=== PATIENT | male | born 1965 | race Caucasian/White ===

== ENCOUNTER 2020-01-29 06:47 | Outpatient (NON) | payer BC, SELFPAY ==
[2020-01-29 22:14] LABS: SARS-CoV-2 RNA PCR Negative
== END 2020-01-29 06:48 ==
LOC: ANHCOVIDDT 06:50
PROVIDERS: Visit Provider Internal Medicine
DX: Z20.828 Contact with and (suspected) exposure to other viral communicable diseases (principal); R05 Cough
CPT/HCPCS: 87635; C9803; U0003

== ENCOUNTER 2020-03-08 06:54 | Outpatient (NON) | payer BC, SELFPAY ==
[2020-03-09 16:06] LABS: SARS-CoV-2 RNA PCR Positive
== END 2020-03-08 06:55 ==
LOC: ANHCOVIDDT 06:57
PROVIDERS: Visit Provider Internal Medicine
DX: U07.1 COVID-19 (principal)
CPT/HCPCS: 87635; C9803; U0003

== ENCOUNTER 2020-06-29 10:33 | Outpatient (CLI) | payer BC, SELFPAY ==
[2020-06-29 10:55] LABS: Add Urine Microscopic? NO; Appearance Urine Clear (Clear); Bilirubin Urine Negative (Negative); Blood Urine Negative (Negative); Color Urine Colorless (Yellow); Glucose Urine UA Negative (Negative); Ketones Urine Negative (Negative); Leukocyte Esterase Ur Negative LEU/UL (NEGATIVE); Nitrate Urine Negative (Negative); Protein Urine Negative (Negative); Urobilinogen Urine Negative mg/dL (<2.0)
[2020-06-29 11:04] LABS: Specific Grav Ur 1.004 (1.001-1.035)
== END 2020-06-29 10:34 | disposition home or self-care (01) ==
PROVIDERS: PCP Internal Medicine; Visit Provider Physician Assistant
DX: R30.0 Dysuria (principal)
CPT/HCPCS: 81003; 87086

== ENCOUNTER 2020-06-30 11:00 | Emergency (ER) | payer BC, SELFPAY ==
--- NOTE | ~2020-06-30 | CT_ITS ---
EXAMINATION: CT abdomen pelvis wo con EXAM DATE: 06/30/2020 11:40 INDICATION: Low back and bladder pain, symptoms a week. Urinary frequency, urgency. TECHNIQUE: Spiral CT of the abdomen and pelvis was performed without contrast. Axial, coronal and sag ittal images were reviewed. The dose-length product (DLP) for this examination was 185.18 mGy-cm. T he exposure was tailored according to patient size (auto mA exposure control), and iterative reconstr uction (ASIR) was used as additional dose reduction technique. Comparison is made to prior examinatio n from 07/03/2015. FINDINGS: There is no nephrolithiasis or hydronephrosis. The prostate is unremarkable. The bladder is unremarkable. The liver, spleen, adrenal glands and pancreas are unremarkable. Gallbladder is u nremarkable. No biliary obstruction. There is no retroperitoneal or pelvic lymphadenopathy. Probable identification of a normal appendix. No pericecal inflammation. The stomach and small sneha l are unremarkable. There is expected amount of colonic stool. No free intraperitoneal gas. The heart is normal in size. There are no pericardial or pleural effusions. The lung bases are unremark able. There are no osteoblastic or osteolytic lesions identified. IMPRESSION: 1. No nephrolithiasis, hydronephrosis or acute intra-abdominal findings. Reviewed, dictated and finalized at location A.
[2020-06-30 11:20] VITALS: BP 155/91; PULSE 68; RESP 16; TEMP 37; O2SAT 100
--- NOTE | 2020-06-30 11:45 | ED.GENADULT ---
HPI - General Adult General Chief complaint: Urogenital-Male Stated complaint: bladder pain Time Seen by Provider: 06/30/20 11:15 Source: patient Mode of arrival: ambulatory Limitations: no limitations History of Present Illness HPI narrative: Patient is a 54-year-old male who presents to emergency department for evaluation of pain in the suprapubic region that began over the weekend and is worsening each day has had a similar bout in the past that lasted a few days and resolved. Patient notes that he took Azo with no improvement. Patient notes that he has had some issues with urination associated with it feeling like he still needs to empty his bladder. Related Data Home Medications Medication Instructions Recorded Confirmed azelastine 205.5 mcg (0.15 %) 2 spray NASAL DAILY 05/04/19 03/07/20 nasal spray ferrous sulfate 325 mg (65 mg 325 mg PO DAILY 05/04/19 03/07/20 iron) tablet fexofenadine 180 mg tablet 180 mg PO DAILY 05/04/19 03/07/20 fluticasone propionate 50 2 spray NASAL DAILY 05/04/19 03/07/20 mcg/actuation nasal spray,suspension multivitamin 1 tablet PO DAILY 05/04/19 03/07/20 omeprazole magnesium 20 mg 20 mg PO DAILY 05/04/19 03/07/20 tablet,delayed release turmeric 400 mg capsule mg PO 05/04/19 03/07/20 Allergies Allergy/AdvReac Type Severity Reaction Status Date / Time Penicillins Allergy Mild rash Verified 06/30/20 11:24 Review of Systems Review of Systems: All systems reviewed & are unremarkable except as noted in HPI and below PMFSH Family History Family History Mother Patient's mother is in good health Sibling Patient's sister is in good health Father Patient's father is Social History Social History Smoking status: Never smoker Second hand tobacco smoke exposure: No Alcohol intake: current Exam Narrative: Exam Narrative: GENERAL: Well-appearing, well-nourished, and in no acute distress. HEAD: Normocephalic, atraumatic. EYES: PERRLA and EOMI. ENT: Nares clear, no rhinorrhea or epistaxis. Mucous membranes moist. CHEST: Clear to auscultation. No respiratory distress. No wheezes rales or rhonchi HEART: Regular rate and rhythm. No murmur heard. Normal peripheral pulses. ABDOMEN: Soft, suprapubic tenderness to palpation with voluntary guarding no masses palpated, nondistended EXTREMITIES: Normal range of motion. No edema. SKIN: Warm, dry, no rash. NEURO: No focal deficits. Alert and oriented x3. PSYCH: Normal mood and affect. Course Course Emergency Course: Patient evaluated in the emergency department will be discharged home did have nitrate in the urine could potentially be a prostatitis or urinary tract infection will be referred to urology given the recurrence of symptoms. Patient had improvement with medications will be discharged on antibiotics and Pyridium ABCs and vital signs intact and stable. . No high risk changes in the blood work or imaging Vital Signs Vital signs: Vital Signs Temperature 98.6 F 06/30/20 11:20 Pulse Rate 68 06/30/20 11:20 Respiratory Rate 16 06/30/20 11:20 Blood Pressure 155/91 H 06/30/20 11:20 Pulse Oximetry 100 06/30/20 11:20 Temperature 98.6 F 06/30/20 11:20 Pulse Rate 68 06/30/20 11:20 Respiratory Rate 16 06/30/20 11:20 Blood Pressure 155/91 H 06/30/20 11:20 Pulse Oximetry 100 06/30/20 11:20 Medical Decision Making MDM Narrative Medical decision making narrative: Patient with urinary symptoms with nitrate positive urine will be treated with antibiotics referred to urology and primary care for further evaluation feels comfortable with this plan Vital Signs Vital Signs: Vital Signs Temperature 98.6 F 06/30/20 11:20 Pulse Rate 68 06/30/20 11:20 Respiratory Rate 16 06/30/20 11:20 Blood Pressure 155/91 H 06/30/20 11:20 Pulse Oximetry 100 06/30/20 11
[2020-06-30] MEDS: SODIUM CHLORIDE 0.9% IV 1,000 ML 999 ML IV CONT (12:01)
[2020-06-30 12:03] LABS: Basophils Absolute Auto 0.1 K/mm3 (0.0-0.1); Basophils Percent Auto 1.5 % (0.2-1.2); Eosinophils Absolute Auto 0.3 K/mm3 (0-0.3); Eosinophils Percent Auto 4.8 % (0-4.4); Hematocrit 44.3 % (42.0-52.0); Hemoglobin 15.2 g/dL (14.0-18.0); Immature Granulocyte Absolute 0.01 K/mm3 (0.00-0.031); Immature Granulocyte Percent A 0.2 % (0-0.5); Lymphocytes Absolute Auto 1.75 K/mm3 (0.9-3.2); Lymphocytes Percent Auto 32.5 % (18.3-44.2); Mean Corpuscular HGB Conc 34.3 g/dl (32-36); Mean Corpuscular Hemoglobin 31.7 pg (26-34); Mean Corpuscular Volume 92.5 fl (80-100); Mean Platelet Volume 9.5 fl (7.4-10.4); Monocytes Absolute Auto 0.6 K/mm3 (0.1-0.6); Monocytes Percent Auto 10.4 % (2.6-8.5); Neutrophils Absolute Auto 2.7 K/mm3 (1.3-6.7); Neutrophils Percent Auto 50.6 % (45.5-73.1); Platelet Count Result 235 k/mm3 (150-375); Red Blood Count 4.79 M/mm3 (4.6-6.20); Red Cell Distribution Width 11.7 % (11.5-14.5); White Blood Count 5.4 K/mm3 (4.5-10.0)
[2020-06-30 12:06] LABS: Add Urine Microscopic? YES; Appearance Urine Clear (Clear); Bilirubin Urine Negative (Negative); Blood Urine Negative (Negative); Color Urine Amber (Yellow); Glucose Urine UA Negative (Negative); Ketones Urine Negative (Negative); Leukocyte Esterase Ur Negative LEU/UL (Negative); Nitrate Urine Positive (Negative); Protein Urine Negative (Negative); RBC Urine 0-2 /hpf (0-2); WBC Urine 0-3 /hpf
[2020-06-30 12:16] LABS: Specific Grav Ur 1.004 (1.001-1.035)
[2020-06-30 12:19] LABS: Alanine Aminotransferase 17 U/L (4-50); Albumin Level 4.3 g/dL (3.5-5.1); Alkaline Phosphatase 38 U/L (38-126); Anion Gap 5 mmol/L (8-16); Aspartate Amino Transferase 24 U/L (17-59); Bilirubin,Total 0.5 mg/dL (0.2-1.3); Blood Urea Nitrogen 14 mg/dL (9-20); Carbon Dioxide 29 mmol/L (22-30); Chloride 104 mmol/L (98-107); Estimated CRCL calculation 62 ml/min; Estimated Glomerular Filt Rate > 60; Glucose 112 mg/dL (75-110); Sodium 138 mmol/L (137-145)
[2020-06-30] MEDS: KETOROLAC 30 MG/ML VIAL (*BKC) IV PUSH (12:44)
[2020-06-30 13:03] VITALS: BP 143/89; PULSE 72; RESP 16; TEMP 36.8; O2SAT 100
== END 2020-06-30 13:04 | disposition home or self-care (01) ==
PROVIDERS: Emergency Medicine Emergency Medical Services; Emergency Provider Emergency Medicine; PCP Internal Medicine
DX: R30.0 Dysuria (principal)
CPT/HCPCS: 36415; 74176; 80053; 81001; 85025; 87086; 96365; 96375; 99284; J0131; J1885; J7030

== ENCOUNTER → 2021-02-28 02:28 | Outpatient (CLI) | payer BC, SELFPAY ==
[2021-02-28 17:58] LABS: SARS-CoV-2 RNA PCR Negative
== END ==
PROVIDERS: PCP Internal Medicine; Visit Provider Internal Medicine
DX: J02.9 Acute pharyngitis, unspecified (principal); Z20.822 Contact with and (suspected) exposure to COVID-19
CPT/HCPCS: C9803; U0003; U0005

== ENCOUNTER → 2021-04-27 08:41 | Outpatient (CLI) | payer BC, SELFPAY ==
[2021-04-27 13:58] LABS: Influenza A QL RT-PCR Negative (Negative); Influenza B QL RT-PCR Negative (Negative); SARS-CoV-2 RNA PCR Negative
== END ==
PROVIDERS: PCP Internal Medicine; Visit Provider Internal Medicine
DX: R68.89 Other general symptoms and signs (principal); Z20.822 Contact with and (suspected) exposure to COVID-19
CPT/HCPCS: 87502; C9803; U0003; U0005

== ENCOUNTER → 2021-06-15 11:42 | Outpatient (CLI) | payer BC, SELFPAY ==
--- NOTE | ~2021-06-15 | XR_ITS ---
XR thoracic spine 2V DATE: 06/15/2021 12:13 INDICATION: Back pain TECHNIQUE: AP, lateral, swimmer views COMPARISON: 08/07/2011 thoracic spine FINDINGS: There is moderately prominent degenerative disc disease at C5-6 and C6-7. There is degenerative spurring of the mid and lower thoracic spine, with prominent bridging osteophyt es particularly along the right lower lateral thoracic spine. No fracture or dislocation or bone destruction. The thoracic pedicles appear intact. No paraspinal so ft tissue thickening. IMPRESSION: Moderate degenerative spurring of the thoracic spine Moderately prominent degenerative disease at C5-6 and C6-7 Reviewed, dictated and finalized at location A.
--- NOTE | ~2021-06-15 | XR_ITS ---
XR lumbar spine 2-3V DATE: 06/15/2021 12:12 INDICATION: Back pain TECHNIQUE: AP, lateral, coned lateral lumbosacral views COMPARISON: None FINDINGS: Normal alignment of the lumbar spine. There is mild degenerative disc disease of the upper mid lumbar spine. The lumbar pedicles are intact. No fracture or bone destruction or spondylolisthesi s. The sacroiliac joints appear normal. IMPRESSION: Mild degenerative change Reviewed, dictated and finalized at location A. IMPRESSION: Mild degenerative change
== END ==
PROVIDERS: PCP Internal Medicine; Visit Provider Internal Medicine
DX: M50.322 Other cervical disc degeneration at C5-C6 level (principal); M51.36 Other intervertebral disc degeneration, lumbar region
CPT/HCPCS: 72070; 72100

== ENCOUNTER → 2021-08-03 08:53 | Outpatient (CLI) | payer BC, SELFPAY ==
[2021-08-03 15:55] LABS: SARS-CoV-2 RNA PCR Negative
== END ==
PROVIDERS: PCP Internal Medicine; Visit Provider Physician Assistant
DX: R68.89 Other general symptoms and signs (principal); Z20.822 Contact with and (suspected) exposure to COVID-19
CPT/HCPCS: C9803; U0003; U0005

== ENCOUNTER 2022-02-25 07:13 | Emergency (ER) | payer BC, SELFPAY ==
[2022-02-25] VITALS (8 sets, daily range): BP systolic 115–139; BP diastolic 74–88; PULSE 61–76; RESP 10–16; TEMP 36.7; O2SAT 99–100
--- NOTE | ~2022-02-25 | XR_ITS ---
EXAMINATION: XR chest 2V DATE: 02/25/2022 08:05 INDICATION: Chest pain. TECHNIQUE: Frontal and lateral views of the chest were obtained. COMPARISON: Chest single view 08/07/2011 FINDINGS: The chest demonstrates clear lungs without pneumonia, pleural effusion, or pneumothorax. Th e heart size is normal. IMPRESSION: 1. No acute cardiopulmonary disease. Reviewed, dictated and finalized at location A. GER OF PATIENT
--- NOTE | 2022-02-25 07:14 | ECG_ITS ---
Measurements Intervals [place] Rate: 70 P: 62 MS: 133 QRS: 67 QRSD: 93 T: 68 QT: 370 QTc: 399 Interpretive Statements SINUS RHYTHM WITH SINUS ARRHYTHMIA NORMAL ECG NO PREVIOUS ECG AVAILABLE FOR COMPARISON Electronically Signed On 02-25-2022 10:48:25 [employer] by Jose J Montiel D.O.
[2022-02-25] MEDS: ASPIRIN 81 MG CHEWABLE TABLET 324 MG PO (07:38)
[2022-02-25 07:52] LABS: Basophils Absolute Auto 0.1 K/mm3 (0.0-0.1); Basophils Percent Auto 1.3 % (0.2-1.2); Eosinophils Absolute Auto 0.4 K/mm3 (0-0.3); Eosinophils Percent Auto 6.1 % (0-4.4); Hematocrit 43.8 % (42.0-52.0); Hemoglobin 15.2 g/dL (14.0-18.0); Immature Granulocyte Absolute 0.03 K/mm3 (0.00-0.031); Immature Granulocyte Percent A 0.5 % (0-0.5); Lymphocytes Percent Auto 34.7 % (18.3-44.2); Mean Corpuscular HGB Conc 34.7 g/dl (32-36); Mean Corpuscular Hemoglobin 31.9 pg (26-34); Mean Corpuscular Volume 91.8 fl (80-100); Mean Platelet Volume 9.4 fl (7.4-10.4); Monocytes Absolute Auto 0.6 K/mm3 (0.1-0.6); Monocytes Percent Auto 10.4 % (2.6-8.5); Neutrophils Absolute Auto 2.9 K/mm3 (1.3-6.7); Platelet Count Result 253 k/mm3 (150-375); Red Blood Count 4.77 M/mm3 (4.6-6.20); Red Cell Distribution Width 12.1 % (11.5-14.5); White Blood Count 6.1 K/mm3 (4.5-10.0)
[2022-02-25 08:03] LABS: Alanine Aminotransferase 19 U/L (6-50); Albumin Level 4.2 g/dL (3.5-5.1); Alkaline Phosphatase 43 U/L (38-126); Anion Gap 8 mmol/L (8-16); Aspartate Amino Transferase 24 U/L (17-59); Bilirubin,Total 0.5 mg/dL (0.2-1.3); Blood Urea Nitrogen 21 mg/dL (9-20); Calcium 8.5 mg/dL (8.4-10.2); Carbon Dioxide 27 mmol/L (22-30); Chloride 101 mmol/L (98-107); Estimated CRCL calculation 56 ml/min; Estimated Glomerular Filt Rate 58; Glucose 97 mg/dL (65-110); Lipase 184 U/L (23-300); Potassium 4.1 mmol/L (3.4-5.0); Sodium 136 mmol/L (137-145)
[2022-02-25 08:11] LABS: INR 1.1; Partial Thromboplastin Time 24.6 SECONDS (22.3-36.8); Prothrombin Time 13.3 Seconds (11.1-14.7)
[2022-02-25 08:15] LABS: Troponin I < 0.012 ng/mL (0.000-0.034)
--- NOTE | 2022-02-25 10:01 | ED.CHESTPAIN ---
HPI - Chest Pain General Chief Complaint: Chest Pain Stated Complaint: Racing HR, palpitations Time Seen by Provider: 02/25/22 07:17 Source: patient and family Mode of arrival: ambulatory History of Present Illness HPI narrative: 56-year-old with a history of hypercholesterolemia here with complaints of intermittent palpitations since last night. Patient states that his heart rate went up to 120 he was checking on his iWatch, this happened last evening and again this morning. He states that he had mild chest discomfort. He denied being lightheaded or dizzy. No history of nausea, vomiting or diarrhea. No history of fever or chills. Related Data Allergies Allergy/AdvReac Type Severity Reaction Status Date / Time Penicillins Allergy Mild rash Verified 02/25/22 07:28 Review of Systems Review of Systems: All systems reviewed & are unremarkable except as noted in HPI and below Constitutional: Constitutional: Reports no additional constitutional complaints Eyes: Eyes: Reports no additional eye complaints ENT: Reports system reviewed and no additional complaints, except as documented Cardiovascular: Cardiovascular: Reports as per HPI Respiratory: Respiratory: Reports no additional respiratory complaints Gastrointestinal: Gastrointestinal: Reports no additional gastrointestinal complaints Musculoskeletal: Musculoskeletal: Reports no additional musculoskeletal complaints Neurologic: Reports system reviewed and no additional complaints, except as documented Psychiatric: Psychiatric: Reports no additional psychiatric complaints PMFSH Family History Family History Mother Patient's mother is in good health Sibling Patient's sister is in good health Father Patient's father is Social History Social History Smoking status: Never smoker Second hand tobacco smoke exposure: No Alcohol intake: current Exam Narrative: GENERAL: Well-appearing, well-nourished, and in no acute distress. HEAD: Normocephalic, atraumatic. EYES: PERRLA and EOMI.. NECK: Supple. CHEST: Clear to auscultation. No respiratory distress. HEART: Regular rate and rhythm. No murmur heard. Normal peripheral pulses. ABDOMEN: Soft, nontender, nondistended, normal active bowel sounds. EXTREMITIES: Normal range of motion. No edema. SKIN: Warm, dry, no rash. NEURO: No focal deficits. Alert and oriented x3. PSYCH: Normal mood and affect. Course Course Emergency Course: Patient remained in normal sinus rhythm here in the ER for several hours his heart rate ranged from 65-78-80. I informed him about his lab work, EKG and chest x-ray findings. Recommended him not to drink much of coffee or caffeinated beverages. Advised him to follow-up with his primary doctor and also if needed cardiology. Vital Signs Vital signs: Vital Signs Temperature 36.7 C 02/25/22 07:23 Pulse Rate 68 02/25/22 07:23 Respiratory Rate 12 02/25/22 07:23 Blood Pressure 139/88 02/25/22 07:23 Pulse Oximetry 100 02/25/22 07:23 Oxygen Delivery Room Air 02/25/22 07:23 Temperature 36.7 C 02/25/22 07:23 Pulse Rate 73 02/25/22 08:51 Respiratory Rate 15 02/25/22 08:51 Blood Pressure 115/80 02/25/22 08:51 Pulse Oximetry 100 02/25/22 08:51 Oxygen Delivery Room Air 02/25/22 07:23 MDM - Chest Pain Differential Diagnosis Differential diagnosis: Likely unstable angina pectoris, atypical chest pain and chest pain Medical Records Data Attestation: I reviewed the patient's medical records. Lab Data Attestation: I reviewed the patient's lab results. Result diagrams: 02/25/22 07:33 02/25/22 07:33 Labs: Lab Results 02/25/22 02/25/22 02/25/22 Range/Units 07:33 07:33 07:33 WBC 6.1 (4.5-10.0) K/mm3 RBC 4.77 (4.6-6.20) M/mm3 Hgb 15.2 (14.0-18.0) g/dL Hct 43.8
== END 2022-02-25 10:35 | disposition home or self-care (01) ==
PROVIDERS: Emergency Provider Family Medicine; PCP Internal Medicine
DX: R00.2 Palpitations (principal); E78.00 Pure hypercholesterolemia, unspecified
CPT/HCPCS: 36415; 71046; 80053; 83690; 84484; 85025; 85610; 85730; 93005; 99284; A9270

== ENCOUNTER 2022-03-14 09:00 | Outpatient (CLI) | payer BC, SELFPAY ==
--- NOTE | ~2022-03-14 | NM_ITS ---
EXAMINATION: NM neha stress w perfusion DATE: 03/14/2022 11:00 INDICATION: Chest pain TECHNIQUE: Rest images were obtained following intravenous administration of 8.3 mCi Tc99m tetrofosmi n (Myoview). The patient was infused intravenously with Lexiscan (Regadenoson). Then, 27.9 mCi Tc99m tetrofosmin (Myoview) was administered intravenously, and stress images were obtained. Data was recon structed into short axis and horizontal and vertical long axis SPECT images. Gated SPECT images were also obtained. COMPARISON: None. FINDINGS: There is no definite reversible or fixed perfusion abnormality to suggest ischemia or infar ction. There is normal left ventricular chamber size, wall motion and ejection fraction. Left ventr icular ejection fraction measures 54%. IMPRESSION: 1. Normal myocardial perfusion at rest and during stress. 2. Left ventricular ejection fraction measuring 54%. Reviewed, dictated and finalized at location A. ATING ROOM ORDERLY
--- NOTE | 2022-03-14 09:22 | EST_ITS ---
Patient Info Name: Av Quintanilla Age: 56 years : 1965 Gender: Male Ht: 68 in Wt: 155 lbs BSA: 1.84 m2 HR: 62 bpm BP: 138 / 75 mmHg Heart Rhythm: Sinus Rhythm Exam Date: 03/14/2022 10:02 AM Exam Location: [facility] Stress Patient Status: Outpatient Admit Date: 03/14/2022 Staff Ordering Physician: Curtis Horton PA-C Attending Provider: Curtis Horton PA-C Exercise Technologist: Valencia Valdez CT Exercise Physician: Jose J Montiel DO Exam Type: CA stress neha w NM Study Info Indications R07.9 - Chest pain, unspecified A regadenoson stress test was performed. Summary 1. 1. Negative lexiscan stress test for ischemic ST changes by ECG criteria. 2. 2. Stable hemodynamics throughout the test. 3. 3. Nuclear scan to follow and will be reported separately. Please correlate with it. 4. 4. Patient informed of the above results. Protocol: Lexiscan Stress ECG Details Stage: REST Duration (min): 1 min : 43 sec HR (bpm): 60 SBP (mmHg): 138 DBP (mmHg): 75 Stage: REST Duration (min): 5 min : 42 sec HR (bpm): 66 SBP (mmHg): 138 DBP (mmHg): 75 Stage: STAGE 1 Duration (min): 1 min : 0 sec HR (bpm): 101 SBP (mmHg): 136 DBP (mmHg): 85 Stage: RECOVERY Duration (min): 1 min : 0 sec HR (bpm): 88 SBP (mmHg): 136 DBP (mmHg): 85 Stage: RECOVERY Duration (min): 2 min : 0 sec HR (bpm): 70 SBP (mmHg): 136 DBP (mmHg): 85 Stage: RECOVERY Duration (min): 2 min : 56 sec HR (bpm): 77 SBP (mmHg): 123 DBP (mmHg): 81 Rest HR: 66 bpm Peak HR: 103 bpm Rest Sys BP: 138 mmHg Peak Sys BP: 136 mmHg Max Pred HR: 166 bpm % Max Pred HR: 62 % Target HR: 141 bpm Max RPP: 14,008 bpm*mmHg Termination Reason: Completed protocol Cardiac Symptoms: Shortness of breath, Flushed Total Time: 1 min : 0 sec Rest Jonas BP: 75 mmHg Peak Jonas BP: 85 mmHg Total Dose: 0.4 mg Resting ECG Sinus rhythm. Stress ECG No ST changes. Arrhythmias None. Report Signatures
== END 2022-03-14 09:01 | disposition home or self-care (01) ==
PROVIDERS: PCP Internal Medicine; Visit Provider Physician Assistant
DX: R07.9 Chest pain, unspecified (principal)
CPT/HCPCS: 78452; 93017; A9502; J2785

== ENCOUNTER 2024-03-28 17:50 | Emergency (ER) | payer OTHER, SELFPAY ==
[2024-03-28 18:03] VITALS: BP 113/74; PULSE 83; RESP 16; TEMP 36.2; O2SAT 99
--- NOTE | 2024-03-28 18:10 | ED_ITS ---
HPI - URI/Sore Throat General Chief Complaint: Upper Respiratory Infection Stated Complaint: congestion,cough Source: patient, RN notes reviewed and old records reviewed Mode of arrival: ambulatory Limitations: no limitations History of Present Illness HPI Narrative: Patient presents with complaint productive cough, body aches, rash. He reports that symptoms all began about 1 week ago. 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 He reports that he has had chills, sweats, unsure of fever status. He has been taking multiple [id number] medications with minimal results. Related Data Home Medications ?Medication ?Instructions ?Recorded ?Confirmed ?Last Taken ?Type fexofenadine 180 mg tablet 180 mg PO DAILY 03/28/24 03/28/24 Unknown History (Lana Allergy) omeprazole 20 mg capsule,delayed 20 mg PO DAILY 03/28/24 03/28/24 Unknown History release Allergies Allergy/AdvReac Type Severity Reaction Status Date / Time Penicillins Allergy Mild rash Verified 03/28/24 17:56 Review of Systems Review of Systems: All systems reviewed & are unremarkable except as noted in HPI and below Constitutional: Constitutional: Reports no additional constitutional complaints ENT: Reports system reviewed and no additional complaints, except as documented, Reports nasal congestion and Reports nasal discharge Cardiovascular: Cardiovascular: Reports no additional cardiovascular complaints Respiratory: Respiratory: Reports no additional respiratory complaints, Reports change in phlegm color, Reports chest congestion, Reports cough, Reports excessive phlegm production and Reports pain with cough Gastrointestinal: Gastrointestinal: Reports no additional gastrointestinal complaints PMFSH Past Medical History Medical History Other and unspecified hyperlipidemia Family History Family History Mother Patient's mother is in good health Sibling Patient's sister is in good health Father Patient's father is Social History Social History Smoking status: Never smoker Second hand tobacco smoke exposure: No Alcohol intake: current Lack of Transportation: No Lack of Food: Never True Current Housing: I Have Housing Concerned About Future Housing: No Difficulty Paying Gas/Electric Bills: No Difficulty Paying for Meds: No Currently Unemployed: No Education: Bachelor's Degree Difficulty w/ Childcare or Family Care: No Comments At the time of my signature, I reviewed and agree with the nursing past medical, surgical, social, and family history. There is no relevant family history pertinent to the patient complaint. Exam Const: General: cooperative, no acute distress, alert and awake Orientation/consciousness: oriented to person, oriented to place and oriented to time HENMT: Head: normal to inspection Ears: TM's normal bilaterally Mouth: Yes moist mucous membranes Throat: posterior oropharynx abnormal erythema Resp: Effort & Inspection: normal respiratory effort and able to speak in complete sentences Auscultation: clear to auscultation bilaterally, crackles on the right in the lower lung hernandez, no rales, no rhonchi and no wheezes Cardio: Palpation: normal PMI Rate: regular rate Rhythm: regular rhythm Heart sounds: S1 normal heart sound present and S2 normal heart sound present Skin: General skin exam: rashes (Maculopapular rash to trunk) Neuro: General: oriented to person, oriented to place and oriented to time Cranial nerves: Yes CN's II-XII intact bilaterally Psych: Appearance: grossly normal Thought process: Normal thought process present Insight: Good insight present (Psych) Judgement: Good judgement present (Psych) Course Course Level of Care: Express Care Visit Vital Signs Vital signs: Vital Signs Temperature 97.1 F L 03/28/24 18:03 Pulse Rate 83 03/28/24 18:03 Respiratory Rate 16 03/28/24 18:03 Blood Pressure 113/74 03/28/24 18:03 Pulse Oximetry 99 03/28/24 18:03 Oxygen Delivery Room Air 03/28/24 18:03 Temperature 97.1 F L 03/28/24 18:03 Pulse Rate 83 03/28/24 18:03 Respiratory Rate 16 03/28/24 18:03 Blood Pressure 113/74 03/28/24 18:03 Pulse Oximetry 99 03/28/24 18:03 Oxygen Delivery Room Air 03/28/24 18:03 Reviewed MDM - URI/Sore Throat MDM Narrative Medical decision making narrative: History and exam consistent with atypical pneumonia that is not prevalent within the community. Rash of unclear etiology. Start patient on azithromycin, prednisone, bronchodilators. He is nontoxic appearing and stable for discharge home. Discharge instructions reviewed with patient, as well as provided in writing per nursing staff. The instructions also include specific and strict return/GO TO THE ER as well as f/u information. All questions have been answered, and the patient deny any further questions with discharge and discharge plan. Some parts of this dictation were generated by voice recognition software and may contain typographical and/or grammatical inaccuracies. Differential Diagnosis Differential diagnosis: Likely upper respiratory infection, otitis media, sinusitis, viral infection, influenza and pharyngitis Medical Records Attestation: I reviewed the patient's medical records. Discharge Plan Discharge Clinical Impression: Atypical pneumonia Patient Disposition: Home, Self-Care Condition: Stable Instructions: Antibiotic Form, Community Acquired Pneumonia (ED) Additional Instructions: Take all medications as prescribed. Follow with primary care provider. Emergency department for new or worse symptoms Patient Language: Georgian Prescriptions: New azithromycin 250 mg tablet See Rx Instructions .ROUTE .COMPLEX Qty: 6 0RF Rx Instructions: For 250 mg dose pack: take 500 mg today (day 1), then 250 mg for 4 days (days 2-5) prednisone 50 mg tablet 50 mg PO DAILY Qty: 5 0RF albuterol sulfate [Ventolin HFA] 90 mcg/actuation HFA aerosol inhaler 2 puff inhalation QID PRN (Reason: shortness of breath or wheezing) Qty: 8.5 0RF No Action fexofenadine [Lana Allergy] 180 mg tablet 180 mg PO DAILY omeprazole 20 mg capsule,delayed release(DR/EC) 20 mg PO DAILY levothyroxine 112 mcg tablet 112 mcg PO DAILY Qty: 90 1RF Follow-up/Referrals: Franky Merritt APRN [Primary Care Provider] - 2 Weeks Time of Disposition: 18:33
== END 2024-03-28 18:39 | disposition home or self-care (01) ==
PROVIDERS: Emergency Provider Nurse Practitioner Family; PCP Nurse Practitioner
DX: J18.9 Pneumonia, unspecified organism (principal)
CPT/HCPCS: 99213; G0463